=== PATIENT | female | born 1970 | race Caucasian/White ===

== ENCOUNTER 2018-01-20 08:53 | Day surgery (SDC) | payer OTHER ==
[~2018-01-20] VITALS: Ht 165.1 cm; Wt 60.7 kg
[~2018-01-20 08:53] MED LIST: OCELLA TABLET1 EACH PO; ZYRTEC10 M3 PO
[2018-01-20 09:19] VITALS: BP 121/74
[2018-01-20 13:15] VITALS: BP 111/59
[2018-01-20 13:53] VITALS: BP 120/67
== END 2018-01-20 13:57 | disposition home or self-care (01) ==
LOC: SDC 08:53
PROC: 0UBC7ZX Excision of Cervix, Via Natural or Artificial Opening, Diagnostic (ICD-10-PCS; principal; 2018-01-20)
DX: N87.1 Moderate cervical dysplasia (principal); J30.2 Other seasonal allergic rhinitis; Z82.49 Family history of ischemic heart disease and other diseases of the circulatory system; Z88.1 Allergy status to other antibiotic agents; Z88.8 Allergy status to other drugs, medicaments and biological substances
CPT/HCPCS: 88307; 88342 TC; J0690; J1100; J2405; J3010